=== PATIENT | female | born 2000 | race African-American/Black ===

== ENCOUNTER 2022-02-27 10:52 | Emergency (ER) | payer OTHER, SELFPAY ==
[2022-02-27 11:08] VITALS: BP 110/72; PULSE 96; RESP 16; TEMP 37.1; O2SAT 99; BMI 22.6
--- NOTE | 2022-02-27 12:14 | ED.GENADULT ---
HPI - General Adult General Chief complaint: Laceration/Wound Stated complaint: right foot injury Time Seen by Provider: 02/27/22 12:03 Source: patient Mode of arrival: ambulatory Limitations: no limitations History of Present Illness HPI narrative: 21-year-old female coming in today after suffering a laceration to the right foot. She was hanging of a bar in her closet when the bar fell on her foot. She denies any other injury. This occurred shortly before presenting to the ER. Per nursing staff, her tetanus is up-to-date. Related Data Home Medications Medication Instructions Recorded Confirmed control pill DAILY 02/27/22 Allergies Allergy/AdvReac Type Severity Reaction Status Date / Time No Known Drug Allergies Allergy Verified 02/27/22 11:07 Review of Systems Narrative: Denies other injury. PFSH PFS Social History Smoking Status: Never smoker Do you use any of these nicotine containing products: None Second hand tobacco smoke exposure: No How often do you have a drink containing alcohol: never AUDIT-C Alcohol total score: 0 Non-prescribed substance use: marijuana (any form) service: No Exam Narrative: Exam Narrative: Well-nourished well-developed patient in no acute distress. Alert and oriented. Answers questions appropriately. Mood and affect are appropriate. Thoughts are goal oriented and rational. No tangential or magical thinking noted. Patient speaks in full sentences without needing to catch her breath. HEENT: Normocephalic atraumatic. Pupils are equally round reactive to light. Extraocular muscles are intact. Conjunctivae are moist without any icterus noted. Skin: Well perfused without any obvious rashes. Patient has approximately a 1 cm laceration that goes through the skin but not through the subcutaneous tissue, located on the dorsal surface of the foot. Remainder of the foot is entirely normal. Skin is gaping open. Const: Vital Signs, click to edit/add: Vital Signs - 24 hr 02/27/22 11:08 Temperature 98.7 F Pulse Rate [Pulse Oximeter] 96 Respiratory Rate 16 Blood Pressure [Ri ght Upper Arm] 110/72 Pulse Oximetry 99 Oxygen Delivery Me thod Room Air Course Course Hospital Course: Foot was cleaned in the usual sterile manner and anesthetized with lidocaine. Two sutures with 4 Ethilon were placed with great skin approximation and patient tolerated the procedure well. Vital Signs Vital signs: Initial Vital Signs Temperature 98.7 F 02/27/22 11:08 Temperature Source Temporal Artery Scan 02/27/22 11:08 Pulse Rate 96 02/27/22 11:08 Pulse Rhythm 02/27/22 11:08 Pulse Strength 3+ Normal 02/27/22 11:08 Respiratory Rate 16 02/27/22 11:08 Blood Pressure 110/72 02/27/22 11:08 Blood Pressure Mean 84 02/27/22 11:08 Blood Pressure Position Sitting 02/27/22 11:08 Pulse Oximetry 99 02/27/22 11:08 Oxygen Delivery Method 02/27/22 11:08 Vital Signs Temperature 98.7 F 02/27/22 11:08 Pulse Rate 96 02/27/22 11:08 Respiratory Rate 16 02/27/22 11:08 Blood Pressure 110/72 02/27/22 11:08 Pulse Oximetry 99 02/27/22 11:08 Oxygen Delivery Method 02/27/22 11:08 Temperature 98.7 F 02/27/22 11:08 Pulse Rate 96 02/27/22 11:08 Respiratory Rate 16 02/27/22 11:08 Blood Pressure 110/72 02/27/22 11:08 Pulse Oximetry 99 02/27/22 11:08 Oxygen Delivery Method 02/27/22 11:08 Medical Decision Making MDM Narrative Medical decision making narrative: Laceration to dorsum of right foot, sutured in the ER today. We discussed wound hygiene, signs and symptoms of infections, reasons to return for follow-up. Suture removal in 7-10 days. Patient had no other questions. Discharge Plan Discharge Clinical Impression: Laceration Patient Disposition: Home, Self-Care Condition: Improved Additional Instructions: Keep foot clean and dry. Okay to shower like he normally would but do not soak the foot for extended periods of time. Keep the laceration dry and covered for 2-3 days then once a scab appears to form and skin appears to be closed you can leave open to the environment. Suture should be removed in 7-10 days. Watch for signs of infection which include redness or drainage from the laceration-if this occurs see your doctor right away. There will be a scar present when it is healed, this is normal. Prescriptions: No Action control pill DAILY Stand Alone Forms: MyHealth Info Instructions
[2022-02-27 12:35] VITALS: BP 110/72; PULSE 96; RESP 16; TEMP 37.1
== END 2022-02-27 12:36 | disposition home or self-care (01) ==
PROVIDERS: Emergency Provider Family Medicine
DX: S91.311A Laceration without foreign body, right foot, initial encounter (principal); W22.8XXA Striking against or struck by other objects, initial encounter; Y93.89 Activity, other specified; Y92.013 Bedroom of single-family (private) house as the place of occurrence of the external cause; Y99.8 Other external cause status
CPT/HCPCS: 12001; 99284